=== PATIENT | female | born 1945 | race Caucasian/White ===

== ENCOUNTER → 2016-08-12 | Outpatient (CLI) | payer MEDICARE, OTHER ==
[~2016-08-12] MED LIST: ALBU17IN INH; ASTE0.15; BENZ200C44 PO; CALC500T36 PO; EXEM25TA PO; SING10TA32 PO
--- NOTE | 2016-08-17 11:38 | RADONC ---
RADIATION ONCOLOGY FOLLOWUP NOTE DATE: 08/12/2016 CHART NUMBER: [id number]. DIAGNOSIS: Right breast cancer. STAGE: IA, [id number]. ECOG PERFORMANCE STATUS: 0. FOLLOWUP NOTE: Ms. 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 The patient presents today reporting that she is doing quite well with no complaints at this time related to her radiation therapy or disease. She has no breast or bone pain. REVIEW OF SYSTEMS: The patient's review of systems is noncontributory. Denies nausea, vomiting, fevers, chills, night sweats, diplopia, headaches, anxiety or depression, anorexia, weight loss, visual disturbances, chest pain, urinary or bowel difficulties, bone pain, or neurological problems. PHYSICAL EXAMINATION: The patient is a well-developed, well-nourished, 71-year-old female, in no acute distress. HEENT exam is normocephalic, atraumatic. Extraocular movements are intact. There is no palpable cervical, supraclavicular, infraclavicular, axillary, or inguinal lymphadenopathy present. Lungs are clear to auscultation and percussion. Heart has a regular rate and rhythm. Abdomen is benign with no hepatosplenomegaly, masses, or tenderness. Breast examination reveals no masses or discharge bilaterally. Skeletal examination reveals no tenderness to pressure or percussion of the bony skeleton. Extremities reveal no clubbing, cyanosis, or edema. Neurologic exam is grossly intact, as is the remainder of the physical examination. ASSESSMENT: The patient is clinically GEM at this time and will be seen by us again in 6 months for further followup. She will also continue to be followed by her other physicians. cc: Kat Stanley MD *Patrick López MD *NAZARIO Bella
== END ==
LOC: M ONCR 11:02
PROVIDERS: ATTEND Radiology Radiation Oncology
DX: C50.211 Malignant neoplasm of upper-inner quadrant of right female breast (principal)

== ENCOUNTER → 2017-01-11 | Outpatient (CLI) | payer MEDICARE, OTHER ==
[~2017-01-11] MED LIST changes: -BENZ200C44 PO; +BENZ200C53 PO
--- NOTE | 2017-01-11 15:09 | REP ---
HISTORY: Breast carcinoma and rib pain. COMPARISON: None. After the intravenous administration of 19.7 mCi of technetium 99m MDP, a total body bone scan was obtained. Degenerative type uptake pattern is seen in the shoulders, elbows, wrists, hands, knees, hips, feet, and ankles. There is no compelling evidence for metastatic disease. IMPRESSION: Mild degenerative uptake pattern without compelling evidence for metastatic disease. Signed by Ron Christopher DO 01/12/2017 11:29 A
== END ==
LOC: M RAD 08:42
PROVIDERS: ATTEND Internal Medicine Medical Oncology
DX: C50.919 Malignant neoplasm of unspecified site of unspecified female breast (principal); R07.81 Pleurodynia; M25.511 Pain in right shoulder; M25.512 Pain in left shoulder; M25.551 Pain in right hip; M25.552 Pain in left hip
CPT/HCPCS: 78306; A9503

== ENCOUNTER → 2017-02-24 | Outpatient (CLI) | payer MEDICARE, OTHER ==
--- NOTE | 2017-02-25 05:44 | RADONC ---
RADIATION ONCOLOGY FOLLOWUP NOTE: DATE: 02/24/2017 CHART NUMBER: [id number]. DIAGNOSIS: Right breast cancer. STAGE: IA, [id number]. ECOG PERFORMANCE STATUS: Zero. FOLLOWUP NOTE: Ms. Champion is a very pleasant, 71-year-old white female with the diagnosis of a stage IA, [id number] well-differentiated infiltrating ductal carcinoma of the right breast who is presenting to us today for routine followup visit 4 years and 1 month post completion of external beam radiation therapy. The patient presents today reporting that she is doing quite well with no complaints at this time related to her radiation therapy disease. She has no breast or bone pain. REVIEW OF SYSTEMS: The patient's review of systems is noncontributory. Denies nausea, vomiting, fevers, chills, night sweats, diplopia, headaches, anxiety or depression, anorexia, weight loss, visual disturbances, chest pain, urinary or bowel difficulties, bone pain, or neurological problems. PHYSICAL EXAMINATION: The patient is a well-developed, well-nourished, 71-year-old white female in no acute distress. HEENT exam is normocephalic, atraumatic. Extraocular movements are intact. There is no palpable cervical, supraclavicular, infraclavicular, axillary, or inguinal lymphadenopathy present. Lungs are clear to auscultation and percussion. Heart has a regular rate and rhythm. Abdomen is benign with no hepatosplenomegaly, masses, or tenderness. Breast examination reveals no masses or discharge bilaterally. Skeletal examination reveals no tenderness to pressure or percussion of the bony skeleton. Extremities reveal no clubbing, cyanosis, or edema. Neurologic exam is grossly intact, as is the remainder of the physical examination. ASSESSMENT: The patient is clinically GEM at this time and will be seen by us again in 1 year for further followup. She will also continue to be followed by her other physicians in the meantime. cc: Kat Stanley MD, FACP NAZARIO Bella MD
== END ==
LOC: M ONCR 08:38
PROVIDERS: ATTEND Radiology Radiation Oncology
DX: C50.211 Malignant neoplasm of upper-inner quadrant of right female breast (principal)

== ENCOUNTER → 2018-03-02 | Outpatient (CLI) | payer MEDICARE, OTHER | LOC: M ONCR 08:57 | DX: C50.211 Malignant neoplasm of upper-inner quadrant of right female breast (principal); Z92.3 Personal history of irradiation | CPT/HCPCS: G0463 ==

== ENCOUNTER → 2019-01-27 | Outpatient (REF) | payer MEDICARE, OTHER ==
[~2019-01-27] MED LIST changes: -BENZ200C53 PO; +BENZ200C70 PO; -CALC500T36 PO; +CALC500T61 PO; +VENTAER IN
== END ==
LOC: M LAB LCGH 15:18
PROVIDERS: ATTEND Surgery
DX: K82.9 Disease of gallbladder, unspecified (principal)

== ENCOUNTER → 2019-03-08 | Outpatient (CLI) | payer MEDICARE, OTHER ==
--- NOTE | 2019-03-09 10:43 | RADONC ---
RADIATION ONCOLOGY FOLLOWUP NOTE DATE: 03/08/2019 CHART NUMBER: [id number] DIAGNOSIS: Right breast cancer. STAGE: IA, [id number]. ECOG PERFORMANCE STATUS: 0 Ms. Champion is a very pleasant 73-year-old white female with the diagnosis of a stage IA, [id number] well-differentiated infiltrating ductal carcinoma of the right breast who is presenting to us today for routine followup visit 6 years and 1 month post completion of external beam radiation therapy. The patient presents today reporting that she is doing quite well with no complaints at this time related to her radiation therapy or disease. She has no breast or bone pain. REVIEW OF SYSTEMS: The patient's review of systems is noncontributory. She denies nausea, vomiting, fevers, chills, night sweats, diplopia, headaches, anxiety or depression, anorexia, weight loss, visual disturbances, chest pain, urinary or bowel difficulties, bone pain, or neurological problems. PHYSICAL EXAMINATION: The patient is a well-developed, well-nourished white female in no acute distress. HEENT exam is normocephalic, atraumatic. Extraocular movements are intact. There is no palpable cervical, supraclavicular, infraclavicular, axillary, or inguinal lymphadenopathy present. Lungs are clear to auscultation and percussion. Heart has a regular rate and rhythm. Abdomen is benign with no hepatosplenomegaly, masses, or tenderness. Breast examination reveals no masses or discharge bilaterally. Skeletal examination reveals no tenderness to pressure or percussion of the bony skeleton. Extremities reveal no clubbing, cyanosis, or edema. Neurologic exam is grossly intact, as is the remainder of the physical examination. ASSESSMENT: The patient is clinically GEM at this time. She is being seen routinely by her medical oncologist every 6 months. In light of this, I am discharging her from my followup except on a p.r.n. basis. cc: NAZARIO Bella MD Howard Meny, MD
== END ==
LOC: M ONCR 08:40
PROVIDERS: ATTEND Radiology Radiation Oncology
DX: C50.211 Malignant neoplasm of upper-inner quadrant of right female breast (principal)

== ENCOUNTER → 2019-12-20 | Outpatient (REF) | payer MEDICARE, OTHER | LOC: M LAB REF 08:05 | PROVIDERS: ATTEND Dermatology | DX: L57.0 Actinic keratosis (principal) ==

== ENCOUNTER → 2020-01-16 | Outpatient (REF) | payer MEDICARE, OTHER | LOC: M LAB REF 10:48 | PROVIDERS: ATTEND Dermatology | DX: L72.0 Epidermal cyst (principal) ==